=== PATIENT | female | born 1950 | race Caucasian/White ===

== ENCOUNTER 2016-12-25 07:25 | Day surgery (SDC) | payer OTHER, MEDICARE ==
[2016-12-23 10:36] LABS: BASOPHILS 0.7 %; BASOPHILS ABSOLUTE 0.04 10/3/uL (0.0-0.16); EOSINOPHILS 2.9 %; EOSINOPHILS ABSOLUTE 0.16 10/3/uL (0.0-0.53); HEMATOCRIT 38.2 % (36.0-48.0); HEMOGLOBIN 12.3 g/dL (12.0-16.0); IMMATURE GRANULOCYTES 0.2 %; IMMATURE GRANULOCYTES ABSOLUTE 0.01 10/3/uL (0.0-0.11); LYMPHOCYTES 27.7 %; LYMPHOCYTES ABSOLUTE 1.51 10/3/uL (0.67-4.30); MEAN CORPUS HGB CONC 32.2 g/dL (32.0-36.0); MEAN CORPUSCULAR HEMOGLOB 29.7 pg (26.0-34.0); MEAN PLATELET VOLUME 10.7 fL (9.2-13.0); MONOCYTES 7.9 %; MONOCYTES ABSOLUTE 0.43 10/3/uL (0.21-1.20); NEUTROPHILS 60.6 %; PLATELET COUNT 260 10/3/uL (150-400); RBC DISTRIBUTION WIDTH 14.5 % (12.0-16.0); RED CELL COUNT 4.14 10/6/uL (4.0-5.6)
[2016-12-23 10:37] LABS: MANUAL DIFF NO %; MEAN CORPUSCULAR VOLUME 92.3 fL (80-100); WHITE BLOOD CELLS 5.5 10/3/uL (4.5-10.5)
[2016-12-23 10:44] LABS: INTERNATIONAL NORMAL RATI 1.1 UNITS (-); PARTIAL THROMBO TIME 28.6 SEC (22.5-37.2); PROTIME (NOT ORD) 13.7 SEC (12.0-14.5)
[2016-12-23 10:57] LABS: PFA (COL/EPI) 102 SEC (72-180)
--- NOTE | ~2016-12-25 | OP ---
Record Of Operation [facility] [address] [place]. 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 PROCEDURE: Bilateral nipple reconstruction and fat graft correction of implant deformity. INDICATIONS AND FINDINGS OF THE PROCEDURE: This 66-year-old female is status post bilateral implant-based reconstruction. She is now appropriate for nipple reconstruction and correction of fat loss deformities produced by her mastectomy. She is appropriate for same. DETAILS OF THE PROCEDURE: The patient was brought to the operating room after being marked in the preoperative holding area. She was prepped and draped in usual sterile fashion for the above-described procedure. First, our attention was turned to the abdomen. She was infiltrated with about 200 mL of wetting solution. Then, lipoaspiration of the abdomen was carried out removing the volume to revolve apparatus. Approximately 300 mL had been removed. This was subsequently treated and transferred to 10 mL syringes. Then, using stab incisions in the breast and the topographical map placed preoperatively, 50 mL of fat was moved to the left breast envelop and 150 to the right. The aspiration incisions were then closed with 5-0 fast-absorbing gut and our attention was turned to nipple reconstruction. Cold nipple markings were placed. Incisions were made on the right. Dissection carried down sharply to the level of the underlying fat. Two fatty tab flaps were created. Hemostasis was obtained at the donor sites. The fatty tab flaps were brought into opposition with 3-0 Monocryl. The donor sites were closed with 3-0 Monocryl. The skin was then closed where necessary with 5-0 fast-absorbing gut. Similarly or identically, a contralateral procedure was carried out. Incisions were made. Dissection was carried down to the level of the underlying fat. Two fatty tab flaps were created. Hemostasis was obtained at the donor sites. The fatty tab flaps were brought into opposition with 3-0 Monocryl. The donor sites were closed with 3-0 Monocryl. The skin was then closed where necessary with 5-0 fast-absorbing gut. Two medial dog-ears from the inframammary crease were then excised, hemostasis was checked, and they were closed with layers of 3-0 Monocryl. She was cleansed with peroxide. Nipple Chavez were placed, and she was remanded to the recovery room in stable condition. All sponge and needle counts were correct. SHANNAN/MARKUS Renato Teresa M.D. / [id number] Record Of Operation [address] [address] NAME: LAVELLE RAINES : [birth year] STATUS : [facility] PAT#: [id number] AGE: 66 ADM/REG DATE : 12/25/16 MR#: [id number] REPORT SERV DATE: 12/26/16 DICTATED BY: RENATO TERESA DATE: 12/26/16 REPORT STATUS : Draft TRANSCRIBED BY: MARKUS DATE: 12/26/16 CC: Maris Marley M.D.
[~2016-12-25 07:25] MED LIST: ADRENAL PO; AT25 PO; B-COMPLEX PO; FISH OIL1200 MG PO; JUICE PLUS PO; K500 PO; MINERALS PO; MULTIVIT/MIN PO; PAX10 PO; PAX20 PO; PERCOCET1 TA2 PO; PRILOSEC40 MG PO; PROBIOTIC PO; SOMATAB PO; SYN88 PO; TRI-IODINE; TRI-IODINE PO; ULTRAM50 PO; VIT C PO; VITAMIN B PO; VITAMIN B-121000 MC1 SL; VITAMIN D31000 UNIT PO; VITAMIN D31000 UNIT SQ; Vitamin D3 PO; ZENPEP5000 UNIT PO; [UNRECOGNIZED DRUG - CODE]; [UNRECOGNIZED DRUG - CODE] PO; [UNRECOGNIZED DRUG - CODE] PO; [UNRECOGNIZED DRUG - OTHER] PO; [UNRECOGNIZED DRUG - REMARK]
== END 2016-12-25 17:02 | disposition home or self-care (01) ==
LOC: SDC 07:25
PROVIDERS: Surgery Surgery of the Hand
PROC: 0HRW07Z Replacement of Right Nipple with Autologous Tissue Substitute, Open Approach (ICD-10-PCS; 2016-12-25)
PROC: 0HB5XZZ Excision of Chest Skin, External Approach (ICD-10-PCS; 2016-12-25)
PROC: 0HRX07Z Replacement of Left Nipple with Autologous Tissue Substitute, Open Approach (ICD-10-PCS; principal; 2016-12-25 08:45)
DX: Z42.1 Encounter for breast reconstruction following mastectomy (principal); K21.9 Gastro-esophageal reflux disease without esophagitis; F32.9 Major depressive disorder, single episode, unspecified; E03.9 Hypothyroidism, unspecified; C25.9 Malignant neoplasm of pancreas, unspecified; Z88.5 Allergy status to narcotic agent; Z90.13 Acquired absence of bilateral breasts and nipples; Z90.710 Acquired absence of both cervix and uterus; Z88.8 Allergy status to other drugs, medicaments and biological substances; Z87.442 Personal history of urinary calculi; Z98.890 Other specified postprocedural states
CPT/HCPCS: 85025; 85576; 85610; 85730; 93005; A9270-GY; J0690; J2250; J2270; J2405; J3010